=== PATIENT | male | born 1990 | race African-American/Black ===

== ENCOUNTER 2018-09-26 18:14 | Emergency (ER) | payer OTHER ==
[2018-09-26 18:21] VITALS: BP 145/76; PULSE 85; TEMP 98.1; BMI 19.9
--- NOTE | 2018-09-26 18:21 | PDOC ---
Rapid Medical Evaluation Chief Complaint: Back Pain Time Seen by Provider: 09/26/18 18:20 Medical Evaluation: 09/26/18 18:20 I have performed a brief in-person evaluation of this patient. The patient presents with a chief complaint of: atraumatic left rib pain Pertinent physical exam findings: Lungs CTAB. No tenderness to left posterior ribs. I have ordered the following: cxr The patient will proceed to the ED for further evaluation. Discharge Disposition - Diagnosis Upper back pain on left side - Referrals - Patient Instructions - Post Discharge Activity
--- NOTE | 2018-09-26 19:00 | PDOC ---
History of Present Illness - General Chief Complaint: Back Pain Stated Complaint: LOWER BACK PAIN Time Seen by Provider: 09/26/18 18:20 History Source: Patient - History of Present Illness Initial Comments: 09/26/18 18:57 28 year old male with no significant medical or surgical history presents with pain in left rib area x 4 days. States pain makes it difficult for him to breath at times. Denies injury or fall, admits to heavy lifting at the gym. Severity: reports: moderate Pain Location: reports: back Method of Injury: Yes: unknown Modifying Factors: improves with: immobilization Loss of Consciousness: no loss of consciousness Associated Symptoms (Fall): denies symptoms Past History - Travel Traveled outside of the country in the last 30 days: No Close contact w/someone who was outside of country & ill: No - Past Medical History Allergies/Adverse Reactions: Allergies Allergy/AdvReac Type Severity Reaction Status Date / Time No Known Allergies Allergy Verified 09/26/18 18:21 Home Medications: Ambulatory Orders Ibuprofen 600 mg PO TID #20 tablet 09/26/18 COPD: No - Suicide/Smoking/Psychosocial Hx Smoking History: Never smoked Information on smoking cessation initiated: No Hx Alcohol Use: No Drug/Substance Use Hx: No Trauma Specific PMHX - Complaint Specific PMHX Arthritis: No Back Injury: No Neck Injury: No Hx Sacro Iliac Joint Dysfunction: No Review of Systems - Review of Systems Able to Perform ROS?: Yes Is the patient limited Japanese proficient: No Constitutional: No: Chills, Fever HEENTM: No: Ear Pain, Ear Discharge, Hearing Loss, Throat Pain Respiratory: Yes: Shortness of Breath. No: SOB at Rest Cardiac (ROS): No: Chest Pain ABD/GI: No: Blood Streaked Bowels, Poor Appetite, Poor Fluid Intake, Abdominal cramping Musculoskeletal: Yes: Joint Pain Integumentary: No: Bruising, Flushing Neurological: No: Numbness, Paresthesia, Weakness Psychiatric: No: Stressors Endocrine: No: Increased Hunger, Unexplained Weight Gain *Physical Exam - Vital Signs Last Vital Signs Temp Pulse Resp BP Pulse Ox 98.1 F 85 19 145/76 100 09/26/18 18:19 09/26/18 18:19 09/26/18 18:19 09/26/18 18:19 09/26/18 18:19 - Physical Exam General Appearance: Yes: Nourished, Appropriately Dressed HEENT: positive: Pharynx Normal Neck: positive: Supple. 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 Plan analgesia xray 09/26/18 19:50 chest xray normal rx: ibuprofen *DC/Admit/Observation/Transfer Diagnosis at time of Disposition: Upper back pain on left side - Discharge Dispostion Disposition: HOME Condition at time of disposition: Good Decision to Admit order: No - Prescriptions Prescriptions: Ibuprofen 600 mg PO TID #20 tablet - Referrals - Patient Instructions Printed Discharge Instructions: DI for Musculoskeletal Pain Additional Instructions: Activity as tolerated Take ibuprofen for pain Call primary physician for follow up appointment Return for worsening symptoms - Post Discharge Activity Forms/Work/School Notes: Back to Work
== END 2018-09-26 20:02 | disposition home or self-care (01) ==
LOC: JERFT 18:14
DX: M54.6 Pain in thoracic spine (principal)
CPT/HCPCS: 71046-TC-FY; 99281-25

== ENCOUNTER 2018-10-18 18:18 | Emergency (ER) | payer OTHER ==
--- NOTE | 2018-10-18 18:28 | PDOC ---
Rapid Medical Evaluation Time Seen by Provider: 10/18/18 18:26 Medical Evaluation: Allergies Allergy/AdvReac Type Severity Reaction Status Date / Time No Known Allergies Allergy Verified 09/26/18 18:21 10/18/18 18:26 I have performed a brief in-person evaluation of this patient. The patient presents with a chief complaint of: right hand pain x3 days Pertinent physical exam findings: No TTP over bony structures. FAROM against resistance. I have ordered the following: xray The patient will proceed to the ED for further evaluation. Discharge Disposition - Diagnosis Right hand pain - Referrals - Patient Instructions - Post Discharge Activity
[2018-10-18 18:30] VITALS: BP 148/77; PULSE 85; TEMP 97.9; BMI 21.3
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
== END 2018-10-18 19:47 | disposition home or self-care (01) ==
LOC: JERFT 18:18
DX: M79.641 Pain in right hand (principal); W51.XXXA Accidental striking against or bumped into by another person, initial encounter; Y93.89 Activity, other specified; Y92.89 Other specified places as the place of occurrence of the external cause; Y99.8 Other external cause status
CPT/HCPCS: 73130-TC-RT-FY; 99281-25